=== PATIENT | male | born 2000 | race African-American/Black ===

== ENCOUNTER 2019-05-02 09:40 | Emergency (ER) | payer MEDICAID ==
[~2019-05-02] VITALS: Ht 175.3 cm; Wt 92.5 kg
[2019-05-02 09:46] VITALS: BP 124/48
== END 2019-05-02 11:21 | disposition home or self-care (01) ==
LOC: ER 09:40
DX: K08.89 Other specified disorders of teeth and supporting structures (principal)

== ENCOUNTER 2023-01-23 03:43 | Emergency (ER) | payer MEDICAID ==
[~2023-01-23] VITALS: Ht 177.8 cm; Wt 101.7 kg
[~2023-01-23 03:43] MED LIST: IBUP-1456 PO
[2023-01-23 05:22] LABS: Urine Bacteria NONE SEEN /hpf (None Seen); Urine Blood Negative /uL (Negative); Urine Clarity Clear (Clear); Urine Color Colorless (Yellow); Urine Protein, UAD Negative (Negative); Urine Specific Gravity 1.005 (1.001-1.035); Urine Urobilinogen Normal (Negative); Urine WBC <1 /hpf (0 - 3); Urine pH 5.5 (5.0-8.0)
[2023-01-23] MEDS ORDERED: KETOROLAC TROMETH 60MG/2ML VIAL IM ONE (07:00)
[2023-01-23 07:25] VITALS: BP 127/84; PULSE 97; RESP 20; TEMP 98.2; O2SAT 96
[2023-01-23] MEDS ORDERED: INDO50SU RE (07:28)
[2023-01-23] MEDS ORDERED: DOXY-286 PO (07:28)
== END 2023-01-23 07:49 | disposition home or self-care (01) ==
LOC: ER 03:43
DX: N45.1 Epididymitis (principal); Z79.1 Long term (current) use of non-steroidal anti-inflammatories (NSAID); Z79.2 Long term (current) use of antibiotics; Z79.899 Other long term (current) drug therapy
CPT/HCPCS: 76870; 81001; 96372; 99285; J1885